=== PATIENT | female | born 1935 | race Caucasian/White ===

== ENCOUNTER 2020-08-11 16:52 | Inpatient (IN) | payer MEDICARE, BC ==
[~2020-08-11] VITALS: Ht 167.6 cm; Wt 81.9 kg
[~2020-08-11 16:52] MED LIST: ASPI-482 PO; ATOR20TA PO; CETI10CA PO; CHOL20002 PO; CYCL10TA2 PO; HYDR-3164 PO; LOSA1TAB25 PO; OMEP40CA45 PO
[2020-08-11] MEDS ORDERED: IV NORMAL SALINE 1000ML BAG 1,000 ML IV SCH (17:30)
[2020-08-11 17:42] LABS: BILIRUBIN,URINE NEGATIVE (NEG); CLARITY,URINE CLEAR; COLOR,URINE YELLOW; NITRITE,URINE NEGATIVE (NEG); PH,URINE 5.5 (<5.0-8.0); PROTEIN,URINE 30 mg/dL (NEG-TRACE); UROBILINOGEN,URINE 0.2 mg/dL (0.2 mg/dL)
[2020-08-11 17:52] LABS: AMORPHOUS SEDIMENT,UR PRESENT /HPF; BACTERIA,URINE MODERATE /HPF (0-FEW); RBC,URINE 0 /HPF (0-2)
[2020-08-11 18:00] LABS: BASO # 0.1 x10^3/uL (0.0-0.2); BASO % 0 % (0-3); EOS % 0 % (0-3); HEMATOCRIT 31.7 % (36.0-47.0); HEMOGLOBIN 9.8 g/dL (12.0-15.5); LYMPH # 0.5 x10^3/uL (1.0-4.8); LYMPH % 4 % (24-48); MEAN CORPUSCULAR HEMOGLOBIN 22 pg (25-35); MEAN CORPUSCULAR HGB CONC 31 g/dL (31-37); MEAN CORPUSCULAR VOLUME 70 fL (79-100); MONO # 0.7 x10^3/uL (0.0-1.1); MONO % 5 % (0-9); NEUT % 91 % (31-73); PLATELET COUNT 425 x10^3/uL (140-400); RED BLOOD COUNT 4.53 x10^6/uL (3.50-5.40); RED CELL DISTRIBUTION WIDTH 18.3 % (11.5-14.5); WHITE BLOOD COUNT 13.2 x10^3/uL (4.0-11.0)
[2020-08-11 18:08] LABS: PROTHROMBIN TIME PATIENT 13.2 SEC (11.7-14.0)
[2020-08-11 18:22] LABS: CALCIUM 9.1 mg/dL (8.5-10.1); CREATININE 0.8 mg/dL (0.6-1.0); GFR 68.5; POTASSIUM 3.8 mmol/L (3.5-5.1)
[2020-08-11 18:34] LABS: % BANDS 1 % (0-9); % LYMPHS 4 % (24-48); % MONOS 3 % (0-10); % SEGS 92 % (35-66); ANISOCYTOSIS SLIGHT; HYPOCHROMIA MOD; MICROCYTOSIS MOD; OVALOCYTES FEW; PLT ESTIMATE ADEQUATE (ADEQUATE)
[2020-08-11 18:35] LABS: ALBUMIN 3.9 g/dL (3.4-5.0); ALBUMIN/GLOBULIN RATIO 1.1 (1.0-1.7); TOTAL BILIRUBIN 1.9 mg/dL (0.2-1.0); TOTAL PROTEIN 7.4 g/dL (6.4-8.2)
--- NOTE | 2020-08-11 18:54 | RAD ---
XR ELBOW COMPLETE_RIGHT 3+ VIEWS, XR SHOULDER_RIGHT 2+ VIEWS, XR HIP (WITH OR WITHOUT PELVIS) 1 VIEW, XR CHEST 1V Clinical History: Reason: FALL, PAIN / Spl. Instructions: / History: One view chest: Technique: AP view of the chest was obtained at 08/11/2020 6:39 PM. Comparison: None. Findings: The cardiomediastinal silhouette is normal. The pulmonary vasculature is normal. The lungs and pleura l margins are clear. There is prior left hip bilateral shoulder arthroplasty. There is a large diaphr agmatic hernia on the right. Impression: No evidence of an acute cardiopulmonary process. End impression Three-view right shoulder: Internally and externally rotated AP views of the shoulder obtained as well as a Y view There is prior right shoulder arthroplasty. The femoral component appears to be well seated within th e glenoid. The visualized osseous structures appear grossly intact. IMPRESSION: Prior right shoulder arthroplasty. No acute findings. 3 view right elbow: AP lateral oblique views There is no fracture line seen. The radial head is not visualized in the right humeral radial relatio nship is normal seen. There is no displacement of fat pad. IMPRESSION: Poor visualization radial head could be positional however a radial head fracture or dislocation is n ot excluded. End impression One view pelvis and two-view hips AP view pelvis and AP and frog leg views hips bilaterally There has been prior repair of the hips with total hip arthroplasty and placement of the acetabular c omponents superior to the previous site of pseudoarthrosis. There has been resection of the proximal right femur. The femoral components appear to be well seated within the femur however the femoral hea d components appear to be somewhat subluxed from the acetabular components. The visualized osseous st ructures appear grossly intact. IMPRESSION: 1. Status post bilateral hip arthroplasty and repair of pseudoarthrosis as well as resection of the p roximal right femur. 2. The femoral head components appear to be somewhat laterally subluxed from the acetabular component s bilaterally. It is unclear if this is chronic. Compared to old x-ray would be helpful. Electronically signed by: Jere Bear III, MD (08/11/2020 6:52 PM) [facility]
--- NOTE | 2020-08-11 19:28 | PHYS DOC ---
Past Medical History Past Medical History: Hypertension (KENTON ORELLANA APRN) Past Surgical History: Appendectomy, Cholecystectomy, Hip Replacement, Knee Replacement, Tonsillectomy Additional Past Surgical Histo: BACK SURGERY (KENTON ORELLANA APRN) Smoking Status: Never Smoker Alcohol Use: None Drug Use: None (KENTON ORELLANA APRN) General Adult EDM: Chief Complaint: MECHANICAL FALL HPI: HPI: Patient is a 85 year old who presents with here by EMS after patient was found by home health laying on the floor in her feces. It is unknown of how long she been there but she was last seen up by family members 24 hours prior. Patient has redness to the right shoulder and arm and states that it does hurt she also has right elbow redness and 2+ swelling. Patient is very stiff in her joints. She is alert and can tell me what year it is and her name. Patient is unable to tell me exactly what happened. Loss of consciousness or is unknown. Patient has a history of dementia, back surgery, appendectomy, cholecystectomy, hip replacement, knee replacement, hypertension. Patient is unable to tell me the quality of her pain or what she rates it. (KENTON ORELLANA DAM WORKER) Review of Systems: Review of Systems: Constitutional: Denies fever or chills. [] Eyes: Denies change in visual acuity. [] HENT: Denies nasal congestion or sore throat. [] Respiratory: Denies cough or shortness of breath. [] Cardiovascular: Denies chest pain or edema. [] GI: Denies abdominal pain, nausea, vomiting, bloody stools or diarrhea. [] : Denies dysuria. [] Musculoskeletal: Denies back pain or joint pain. [] Integument: Denies rash. [] Neurologic: Denies headache, focal weakness or sensory changes. [] Endocrine: Denies polyuria or polydipsia. [] Lymphatic: Denies swollen glands. [] Psychiatric: Denies depression or anxiety. [] (KENTON ORELLANA DAM WORKER) Heart Score: C/O Chest Pain: No Risk Factors: Risk Factors: DM, Current or recent (<one month) smoker, HTN, HLP, family history of CAD, obesity. Risk Scores: Score 0 - 3: 2.5% MACE over next 6 weeks - Discharge Home Score 4 - 6: 20.3% MACE over next 6 weeks - Admit for Clinical Observation Score 7 - 10: 72.7% MACE over next 6 weeks - Early Invasive Strategies (KENTON ORELLANA APRN) Current Medications: Current Medications Medications (Trade) Dose Ordered Sig/Parviz Start Time Stop Time Status Last Admin Dose Admin Sodium Chloride 1,000 ml @ 1,000 mls/hr Q1H 08/11/20 17:30 08/11/20 18:29 DC 08/11/20 18:41 1,000 MLS/HR (KENTON ORELLANA APRN) Allergies: Allergies: Allergies Coded Allergies Type Severity Reaction Last Updated Verified Cephalexin Monohydrate Allergy Unknown 03/21/13 Yes Penicillins Allergy Unknown 03/21/13 Yes morphine Allergy Unknown 03/21/13 Yes vancomycin Allergy Unknown 03/21/13 Yes (KENTON ORELLANA APRN) Physical Exam: PE: Constitutional: Well developed, well nourished, no acute distress, non-toxic appearance. [] HENT: Normocephalic, atraumatic, bilateral external ears normal, oropharynx m oist, no oral exudates, nose normal. [] Eyes: PERRLA, EOMI, conjunctiva normal, no discharge. [] Neck: Normal range of motion, no tenderness, supple, no stridor. [] Cardiovascular:Heart rate regular rhythm, no murmur [] Lungs & Thorax: Bilateral breath sounds clear to auscultation [] Abdomen: Bowel sounds normal, soft, no tenderness, no masses, no pulsatile masses. [] Skin: Warm, dry, no erythema, no rash. [] Back: No tenderness, no CVA tenderness. [] Extremities: No tenderness, no cyanosis, no clubbing, ROM intact, no edema. [] Neurologic: Alert and oriented X 3, normal motor function, normal sensory function, no focal deficits noted. [] Psychologic: Affect normal, judgement normal, mood normal. [] (KENTON ORELLANA APRN) Current Patient Data: Labs: Laboratory Tests Test 08/11/20 17:08 08/11/20 17:40 Urine Collection Type U cath Urine Color Yellow Urine Clarity Clear Urine pH 5.5 (<5.0-8.0) Urine Specific [place] 1.020 (1.000-1.030) Urine Protein 30 mg/dL (NEG-TRACE) Urine Glucose (UA) Negative mg/dL (NEG) Urine Ketones (Stick) Trace mg/dL (NEG) Urine Blood Negative (NEG) Urine Nitrite Negative (NEG) Urine Bilirubin Negative (NEG) Urine Urobilinogen Dipstick 0.2 mg/dL (0.2 mg/dL) Urine Leukocyte Esterase Negative (NEG) Urine RBC 0 /HPF (0-2) Urine WBC 1-4 /HPF (0-4) Urine Squamous Epithelial Cells Few /LPF Urine Amorphous Sediment Present /HPF Urine Bacteria Moderate /HPF (0-FEW) Urine Mucus Slight /LPF White Blood Count 13.2 x10^3/uL (4.0-11.0) H Red Blood Count 4.53 x10^6/uL (3.50-5.40) Hemoglobin 9.8 g/dL (12.0-15.5) L Hematocrit 31.7 % (36.0-47.0) L Mean Corpuscular Volume 70 fL (79-100) L Mean Corpuscular Hemoglobin 22 pg (25-35) L Mean Corpuscular Hemoglobin Concent 31 g/dL (31-37) Red Cell Distribution Width 18.3 % (11.5-14.5) H Platelet Count 425 x10^3/uL (140-400) H Neutrophils (%) (Auto) 91 % (31-73) H Lymphocytes (%) (Auto) 4 % (24-48) L Monocytes (%) (Auto) 5 % (0-9) Eosinophils (%) (Auto) 0 % (0-3) Basophils (%) (Auto) 0 % (0-3) Neutrophils # (Auto) 12.0 x10^3/uL (1.8-7.7) H Lymphocytes # (Auto) 0.5 x10^3/uL (1.0-4.8) L Monocytes # (Auto) 0.7 x10^3/uL (0.0-1.1) Eosinophils # (Auto) 0.0 x10^3/uL (0.0-0.7) Basophils # (Auto) 0.1 x10^3/uL (0.0-0.2) Segmented Neutrophils % 92 % (35-66) H Band Neutrophils % 1 % (0-9) Lymphocytes % 4 % (24-48) L Monocytes % 3 % (0-10) Platelet Estimate Adequate (ADEQUATE) Hypochromasia Mod Anisocytosis Slight Microcytosis Mod Ovalocytes Few Prothrombin Time 13.2 SEC (11.7-14.0) Prothrombin Time INR 1.0 (0.8-1.1) Sodium Level 141 mmol/L (136-145) Potassium Level 3.8 mmol/L (3.5-5.1) Chloride Level 103 mmol/L (98-107) Carbon Dioxide Level 26 mmol/L (21-32) Anion Gap 12 (6-14) Blood Urea Nitrogen 23 mg/dL (7-20) H Creatinine 0.8 mg/dL (0.6-1.0) Estimated GFR (Cockcroft-Gault) 68.5 BUN/Creatinine Ratio 29 (6-20) H Glucose Level 120 mg/dL (70-99) H Lactic Acid Level 1.8 mmol/L (0.4-2.0) Calcium Level 9.1 mg/dL (8.5-10.1) Magnesium Level 2.0 mg/dL (1.8-2.4) Total Bilirubin 1.9 mg/dL (0.2-1.0) H Aspartate Amino Transferase (AST) 51 U/L (15-37) H Alanine Aminotransferase (ALT) 31 U/L (14-59) Alkaline Phosphatase 58 U/L (46-116) Creatine Kinase 1219 U/L (26-192) H Troponin I Quantitative 0.020 ng/mL (0.000-0.055) CB-Elv-W-Type Natriuretic Peptide 2067 pg/mL (0-449) H Total Protein 7.4 g/dL (6.4-8.2) Albumin 3.9 g/dL (3.4-5.0) Albumin/Globulin Ratio 1.1 (1.0-1.7) Lipase 60 U/L (73-393) L Laboratory Tests 08/11/20 17:40 Laboratory Tests 08/11/20 17:40 Vital Signs: Vital Signs Date Time Temp Pulse Resp B/P (MAP) Pulse Ox O2 Delivery O2 Flow Rate FiO2 08/11/20 18:38 84 18 137/62 (87) 98 Room Air 08/11/20 16:52 98.2 98.2 (KENTON ORELLANA APRN) EKG: EK and read by Dr. Alcantara is sinus rhythm and no STEMI [] (KENTON ORELLANA APRN) Radiology/Procedures: Radiology/Procedures: [] Impression: [facility] [address] [place] [address] IMAGING REPORT Signed PATIENT: CHITRA MOON ACCOUNT: [id number] : 1935 LOCATION: ER AGE: 85 SEX: F EXAM STATUS: REG ER ORD. PHYSICIAN: KENTON ORELLANA APRN REASON: AMS PROCEDURE: PORTABLE CHEST 1V XR ELBOW COMPLETE_RIGHT 3+ VIEWS, XR SHOULDER_RIGHT 2+ VIEWS, XR HIP (WITH OR WITHOUT PELVIS) 1 VIEW, XR CHEST 1V Clinical History: Reason: FALL, PAIN / Spl. Instructions: / History: One view chest: Technique: AP view of the chest was obtained at 08/11/2020 6:39 PM. Comparison: None. Findings: The cardiomediastinal silhouette is normal. The pulmonary vasculature is normal. The lungs and pleural margins are clear. There is prior left hip bilateral s houlder arthroplasty. There is a large diaphragmatic hernia on the right. Impression: No evidence of an acute cardiopulmonary process. End impression Three-view right shoulder: Internally and externally rotated AP views of the shoulder obtained as well as a Y view There is prior right shoulder arthroplasty. The femoral component appears to be well seated within the glenoid. The visualized osseous structures appear grossly intact. IMPRESSION: Prior right shoulder arthroplasty. No acute findings. 3 view right elbow: AP lateral oblique views There is no fracture line seen. The radial head is not visualized in the right humeral radial relationship is normal seen. There is no displacement of fat pad. IMPRESSION: Poor visualization radial head could be positional however a radial head fracture or dislocation is not excluded. End impression One view pelvis and two-view hips AP view pelvis and AP and frog leg views hips bilaterally There has been prior repair of the hips with total hip arthroplasty and placement of the acetabular components superior to the previous site of pseudoarthrosis. There has been resection of the proximal right femur. The femoral components appear to be well seated within the femur however the femoral head components appear to be somewhat subluxed from the acetabular components. The visualized osseous structures appear grossly intact. IMPRESSION: 1. Status post bilateral hip arthroplasty and repair of pseudoarthrosis as well as resection of the proximal right femur. 2. The femoral head components appear to be somewhat laterally subluxed from the acetabular components bilaterally. It is unclear if this is chronic. Compared to old x-ray would be helpful. Electronically signed by: Luz Rodriguez III, MD (08/11/2020 6:52 PM) [facility] DICTATED and SIGNED BY: LUZ RODRIGUEZ III, MD DATE: 08/11/20 [id number] [facility] [address] [place] [address] IMAGING REPORT Signed PATIENT: CHITRA MOON ACCOUNT: [id number] : 1935 LOCATION: ER AGE: 85 SEX: F EXAM STATUS: REG ER ORD. PHYSICIAN: KENTON ORELLANA APRN REASON: FALL, PAIN, AMS PROCEDURE: CT THORACIC SPINE WO CONTRAST CT thoracic spine without contrast History: Reason: FALL, PAIN, AMS / Spl. Instructions: / History: Axial helical images of the thoracic spine were obtained without contrast. Axial, coronal and sagittal reconstruction was performed. Findings: The vertebral bodies are aligned. There is no loss of vertebral body stature. Evaluation of the central canal is limited without contrast. There is no evidence of significant central or neuroforaminal stenosis. There is old large diaphragmatic hernia on the right. Impression: No acute findings. End impression CT lumbar spine without contrast History: Back pain Axial helical images of the lumbar spine were obtained without contrast. Axial, coronal and sagittal reconstruction was performed. Findings: There is mild degenerative dextroconvexed scoliosis of the lumbar spine. The vertebral bodies are aligned in the sagittal plane. There is no loss of vertebral body stature. Evaluation of the central canal is limited without contrast. There is loss of intervertebral disc material at multiple levels. Diffuse disc osteophytic ridges and hypertrophy assessment flavum results in multilevel mild central stenosis. There is marked narrowing of multiple neuroforamen below lower legs and nerve roots. There is moderate wall thickening of the rectum not well included in this examination. Impression: 1. Marked chronic discogenic disease lumbar spine. 2. Moderate wall thickening of the rectum. This is not well included in this examination and could be inflammatory or infectious or neoplastic. End impression PQRS Compliance Statement: One or more of the following individualized dose reduction techniques were utilized for this examination: 1. Automated exposure control 2. Adjustment of the mA and/or kV according to patient size 3. Use of iterative reconstruction technique Electronically signed by: Luz Rodriguez III, MD (08/11/2020 7:37 PM) [facility] DICTATED and SIGNED BY: LUZ RODRIGUEZ III, MD DATE: 08/11/20 [id number] [facility] [address] [place] [address] IMAGING REPORT Signed PATIENT: CHITRA MOON ACCOUNT: [id number] : 1935 LOCATION: ER AGE: 85 SEX: F EXAM STATUS: REG ER ORD. PHYSICIAN: KENTON ORELLANA APRN REASON: AMS PROCEDURE: CT HEAD AND CERVICAL SPINE WO Exam: CT head and cervical spine without contrast INDICATION: Altered mental status TECHNIQUE: Sequential axial images through the head and cervical spine were obtained without the administration of IV contrast. Exposure: One or more of the following in the visualized dose reduction techniques were utilized for this examination: 1. Automated exposure control 2. Adjustment of the MA and/or KV according to patient size 3. Use of iterative of reconstructive technique Comparisons: None FINDINGS: Head: No focal parenchymal lesion or hemorrhage is identified. There is no midline shift or sulcal effacement. No acute vascular territory infarction is identified. Gilbert-white distinction is preserved. The ventricular system is within normal limits without compression hydrocephalus. The basal cisterns are well maintained. The visualized portions of the paranasal sinuses and mastoid air cells are well- pneumatized. No acute fractures. Cervical spine: Straightening of the cervical spine which may positional. Vertebral body heights are well-maintained. Fracture to the cervical spine is not identified. Multilevel spondylotic change in cervical spine with degenerative disc disease greatest at C4-C5, C5-6 and C6-C7. Mild bilateral facet arthropathy is also noted. Visualized paraspinal soft tissues are unremarkable. IMPRESSION: 1. No acute intracranial abnormality. 2. Negative CT C-spine for acute traumatic injury. Electronically signed by: Ayo Starr MD (08/11/2020 7:26 PM) [facility] DICTATED and SIGNED BY: AYO STARR MD DATE: 08/11/20 [id number] (KENTON ORELLANA APRN) Course & Med Decision Making: Course & Med Decision Making Pertinent Labs and Imaging studies reviewed. (See chart for details) See HPI. Abdomen is soft and nontender. Upper and lower lobes are clear and lower lobes are diminished. No pain with pelvic rock. There is no pain with palpation over any joints. There is no focal bony spinal tenderness or deformity felt or seen. Bilateral lower legs are 2+ swollen but her feet bilaterally do not appear to be swollen. Vital signs are within normal limits. She is afebrile. There is no trauma seen or felt to her skull or her face. Unable to assess for stroke due to dementia. Unable to assess for joint laxities or weakness due to patient's rigidity and she is unable to follow all c ommands. Skin pink warm and dry. She is wearing a brief this time. [] (KENTON ORELLANA APRN) Dragon Disclaimer: Dragon Disclaimer: This electronic medical record was generated, in whole or in part, using a voice recognition dictation system. (KENTON ORELLANA APRN) Departure Departure Impression: Primary Impression: AMS (altered mental status) Qualified Codes: R41.82 - Altered mental status, unspecified Disposition: ADMITTED INPATIENT Admitting Physician: MJ (KENTON ORELLNAA APRN) Condition: STABLE Referrals: MARCELO FLANAGAN MD (PCP) Attending Signature Attending Signature I have participated in the care of this patient and I have reviewed and agree with all pertinent clinical information above including history, exam, and recommendations. (LURDES ALCANTARA DO) KENTON ORELLANA APRN August 11, 2020 19:28 LURDES ALCANTARA DO August 13, 2020 17:48
--- NOTE | 2020-08-11 19:40 | RAD ---
CT thoracic spine without contrast History: Reason: FALL, PAIN, AMS / Spl. Instructions: / History: Axial helical images of the thoracic spine were obtained without contrast. Axial, coronal and sagitta l reconstruction was performed. Findings: The vertebral bodies are aligned. There is no loss of vertebral body stature. Evaluation of the central canal is limited without contrast. There is no evidence of significant cent ral or neuroforaminal stenosis. There is old large diaphragmatic hernia on the right. Impression: No acute findings. End impression CT lumbar spine without contrast History: Back pain Axial helical images of the lumbar spine were obtained without contrast. Axial, coronal and sagittal reconstruction was performed. Findings: There is mild degenerative dextroconvexed scoliosis of the lumbar spine. The vertebral bodies are ali gned in the sagittal plane. There is no loss of vertebral body stature. Evaluation of the central canal is limited without contrast. There is loss of intervertebral disc mat erial at multiple levels. Diffuse disc osteophytic ridges and hypertrophy assessment flavum results i n multilevel mild central stenosis. There is marked narrowing of multiple neuroforamen below lower legs and nerve roots. There is moderat e wall thickening of the rectum not well included in this examination. Impression: 1. Marked chronic discogenic disease lumbar spine. 2. Moderate wall thickening of the rectum. This is not well included in this examination and could be inflammatory or infectious or neoplastic. End impression PQRS Compliance Statement: One or more of the following individualized dose reduction techniques were utilized for this examinat ion: 1. Automated exposure control 2. Adjustment of the mA and/or kV according to patient size 3. Use of iterative reconstruction technique Electronically signed by: Jere Bear III, MD (08/11/2020 7:37 PM) [facility]
--- NOTE | 2020-08-11 19:49 | EKG ---
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
--- NOTE | 2020-08-11 19:59 | PDOC1 ---
History and Physical Date of Admission Date of Admission DATE: 08/11/20 TIME: 19:50 Source Source: Chart review History of Present Illness History of Present Illness Ms. Avitia, is a 85 year old admit from ER after being found down at her place. She may have been down up to 23 hours from when she was last seen. She has family check on her almost daily and I would guess gets home health. she complains of right arm pain and there is some redness of her upper arm. She is confused but conversant. Past Medical History Past Medical History Patient has a history of dementia, Cardiovascular: CHF, HTN CENTRAL NERVOUS SYSTEM: Dementia GI: No pertinent hx Infectious disease: No pertinent hx Past Surgical History Past Surgical History back surgery, appendectomy, cholecystectomy, hip replacement, knee replacement, Family History Family History: No Significant Social History Smoke: No ALCOHOL: none Current Problem List Problem List Problems Medical Problems: (1) AMS (altered mental status) Status: Acute Current Medications Current Medications Current Medications Sodium Chloride 1,000 ml @ 1,000 mls/hr Q1H IV Last administered on 08/11/20at 1 8:41; Start 08/11/20 at 17:30; Stop 08/11/20 at 18:29; Status DC Sodium Chloride 1,000 ml @ 100 mls/hr Q10H IV ; Start 08/11/20 at 20:00; Stop 08/12/20 at 19:59; Status UNV Active Scripts Active [place] 5-325 Tablet (Hydrocodone Bit/Acetaminophen) 1 Each Tablet 1 Each PO Q6HRS PRN Cyclobenzaprine Hcl 10 Mg Tablet 10 Mg PO TID PRN PRN Reported Vitamin D (Cholecalciferol (Vitamin D3)) 2,000 Unit Tablet 2,000 Unit PO DAILY Omeprazole 40 Mg Capsule. 40 Mg PO DAILY Zyrtec (Cetirizine Hcl) 10 Mg Capsule 10 Mg PO DAILY Aspir 81 (Aspirin) 81 Mg Tablet.dr 81 Mg PO DAILY Losartan-Hctz 100-12.5 Mg Tab (Losartan/Hydrochlorothiazide) 1 Each Tablet 1 Each PO DAILY Lipitor (Atorvastatin Calcium) 20 Mg Tablet 20 Mg PO DAILY Allergies Allergies: Coded Allergies: Cephalexin Monohydrate (Verified Allergy, Unknown, 03/21/13) Penicillins (Verified Allergy, Unknown, 03/21/13) morphine (Verified Allergy, Unknown, 03/21/13) vancomycin (Verified Allergy, Unknown, 03/21/13) ROS Review of System unable to complete, dementia Physical Exam General: Cooperative, No acute distress, Other (not oriented, ) HEENT: Atraumatic, PERRLA Lungs: Normal air movement Heart: no gallops, no murmurs Extremities: Other (no pedal edema, upper leg area seems swollen ) Skin: No significant lesion Neuro: Normal speech, Normal tone, Cranial nerves 3-12 NL Psych/Mental Status: Mood NL Vitals Vitals Vital Signs Date Time Temp Pulse Resp B/P (MAP) Pulse Ox O2 Delivery O2 Flow Rate FiO2 08/11/20 18:38 84 18 137/62 (87) 98 Room Air 08/11/20 16:52 98.2 98.2 Labs Labs Laboratory Tests Test 08/11/20 17:08 08/11/20 17:40 Urine Collection Type U cath Urine Color Yellow Urine Clarity Clear Urine pH 5.5 (<5.0-8.0) Urine Specific [place] 1.020 (1.000-1.030) Urine Protein 30 mg/dL (NEG-TRACE) Urine Glucose (UA) Negative mg/dL (NEG) Urine Ketones (Stick) Trace mg/dL (NEG) Urine Blood Negative (NEG) Urine Nitrite Negative (NEG) Urine Bilirubin Negative (NEG) Urine Urobilinogen Dipstick 0.2 mg/dL (0.2 mg/dL) Urine Leukocyte Esterase Negative (NEG) Urine RBC 0 /HPF (0-2) Urine WBC 1-4 /HPF (0-4) Urine Squamous Epithelial Cells Few /LPF Urine Amorphous Sediment Present /HPF Urine Bacteria Moderate /HPF (0-FEW) Urine Mucus Slight /LPF White Blood Count 13.2 x10^3/uL (4.0-11.0) Red Blood Count 4.53 x10^6/uL (3.50-5.40) Hemoglobin 9.8 g/dL (12.0-15.5) Hematocrit 31.7 % (36.0-47.0) Mean Corpuscular Volume 70 fL (79-100) Mean Corpuscular Hemoglobin 22 pg (25-35) Mean Corpuscular Hemoglobin Concent 31 g/dL (31-37) Red Cell Distribution Width 18.3 % (11.5-14.5) Platelet Count 425 x10^3/uL (140-400) Neutrophils (%) (Auto) 91 % (31-73) Lymphocytes (%) (Auto) 4 % (24-48) Monocytes (%) (Auto) 5 % (0-9) Eosinophils (%) (Auto) 0 % (0-3) Basophils (%) (Auto) 0 % (0-3) Neutrophils # (Auto) 12.0 x10^3/uL (1.8-7.7) Lymphocytes # (Auto) 0.5 x10^3/uL (1.0-4.8) Monocytes # (Auto) 0.7 x10^3/uL (0.0-1.1) Eosinophils # (Auto) 0.0 x10^3/uL (0.0-0.7) Basophils # (Auto) 0.1 x10^3/uL (0.0-0.2) Segmented Neutrophils % 92 % (35-66) Band Neutrophils % 1 % (0-9) Lymphocytes % 4 % (24-48) Monocytes % 3 % (0-10) Platelet Estimate Adequate (ADEQUATE) Hypochromasia Mod Anisocytosis Slight Microcytosis Mod Ovalocytes Few Prothrombin Time 13.2 SEC (11.7-14.0) Prothromb Time International Ratio 1.0 (0.8-1.1) Sodium Level 141 mmol/L (136-145) Potassium Level 3.8 mmol/L (3.5-5.1) Chloride Level 103 mmol/L (98-107) Carbon Dioxide Level 26 mmol/L (21-32) Anion Gap 12 (6-14) Blood Urea Nitrogen 23 mg/dL (7-20) Creatinine 0.8 mg/dL (0.6-1.0) Estimated GFR (Cockcroft-Gault) 68.5 BUN/Creatinine Ratio 29 (6-20) Glucose Level 120 mg/dL (70-99) Lactic Acid Level 1.8 mmol/L (0.4-2.0) Calcium Level 9.1 mg/dL (8.5-10.1) Magnesium Level 2.0 mg/dL (1.8-2.4) Total Bilirubin 1.9 mg/dL (0.2-1.0) Aspartate Amino Transf (AST/SGOT) 51 U/L (15-37) Alanine Aminotransferase (ALT/SGPT) 31 U/L (14-59) Alkaline Phosphatase 58 U/L (46-116) Creatine Kinase 1219 U/L (26-192) Troponin I Quantitative 0.020 ng/mL (0.000-0.055) DC-Wxn-R-Type Natriuretic Peptide 2067 pg/mL (0-449) Total Protein 7.4 g/dL (6.4-8.2) Albumin 3.9 g/dL (3.4-5.0) Albumin/Globulin Ratio 1.1 (1.0-1.7) Lipase 60 U/L (73-393) Laboratory Tests Test 08/11/20 17:08 08/11/20 17:40 Urine Collection Type U cath Urine Color Yellow Urine Clarity Clear Urine pH 5.5 (<5.0-8.0) Urine Specific [place] 1.020 (1.000-1.030) Urine Protein 30 mg/dL (NEG-TRACE) Urine Glucose (UA) Negative mg/dL (NEG) Urine Ketones (Stick) Trace mg/dL (NEG) Urine Blood Negative (NEG) Urine Nitrite Negative (NEG) Urine Bilirubin Negative (NEG) Urine Urobilinogen Dipstick 0.2 mg/dL (0.2 mg/dL) Urine Leukocyte Esterase Negative (NEG) Urine RBC 0 /HPF (0-2) Urine WBC 1-4 /HPF (0-4) Urine Squamous Epithelial Cells Few /LPF Urine Amorphous Sediment Present /HPF Urine Bacteria Moderate /HPF (0-FEW) Urine Mucus Slight /LPF White Blood Count 13.2 x10^3/uL (4.0-11.0) Red Blood Count 4.53 x10^6/uL (3.50-5.40) Hemoglobin 9.8 g/dL (12.0-15.5) Hematocrit 31.7 % (36.0-47.0) Mean Corpuscular Volume 70 fL (79-100) Mean Corpuscular Hemoglobin 22 pg (25-35) Mean Corpuscular Hemoglobin Concent 31 g/dL (31-37) Red Cell Distribution Width 18.3 % (11.5-14.5) Platelet Count 425 x10^3/uL (140-400) Neutrophils (%) (Auto) 91 % (31-73) Lymphocytes (%) (Auto) 4 % (24-48) Monocytes (%) (Auto) 5 % (0-9) Eosinophils (%) (Auto) 0 % (0-3) Basophils (%) (Auto) 0 % (0-3) Neutrophils # (Auto) 12.0 x10^3/uL (1.8-7.7) Lymphocytes # (Auto) 0.5 x10^3/uL (1.0-4.8) Monocytes # (Auto) 0.7 x10^3/uL (0.0-1.1) Eosinophils # (Auto) 0.0 x10^3/uL (0.0-0.7) Basophils # (Auto) 0.1 x10^3/uL (0.0-0.2) Segmented Neutrophils % 92 % (35-66) Band Neutrophils % 1 % (0-9) Lymphocytes % 4 % (24-48) Monocytes % 3 % (0-10) Platelet Estimate Adequate (ADEQUATE) Hypochromasia Mod Anisocytosis Slight Microcytosis Mod Ovalocytes Few Prothrombin Time 13.2 SEC (11.7-14.0) Prothromb Time International Ratio 1.0 (0.8-1.1) Sodium Level 141 mmol/L (136-145) Potassium Level 3.8 mmol/L (3.5-5.1) Chloride Level 103 mmol/L (98-107) Carbon Dioxide Level 26 mmol/L (21-32) Anion Gap 12 (6-14) Blood Urea Nitrogen 23 mg/dL (7-20) Creatinine 0.8 mg/dL (0.6-1.0) Estimated GFR (Cockcroft-Gault) 68.5 BUN/Creatinine Ratio 29 (6-20) Glucose Level 120 mg/dL (70-99) Lactic Acid Level 1.8 mmol/L (0.4-2.0) Calcium Level 9.1 mg/dL (8.5-10.1) Magnesium Level 2.0 mg/dL (1.8-2.4) Total Bilirubin 1.9 mg/dL (0.2-1.0) Aspartate Amino Transf (AST/SGOT) 51 U/L (15-37) Alanine Aminotransferase (ALT/SGPT) 31 U/L (14-59) Alkaline Phosphatase 58 U/L (46-116) Creatine Kinase 1219 U/L (26-192) Troponin I Quantitative 0.020 ng/mL (0.000-0.055) OO-Bwe-Q-Type Natriuretic Peptide 2067 pg/mL (0-449) Total Protein 7.4 g/dL (6.4-8.2) Albumin 3.9 g/dL (3.4-5.0) Albumin/Globulin Ratio 1.1 (1.0-1.7) Lipase 60 U/L (73-393) VTE Prophylaxis Ordered VTE Prophylaxis Devices: No VTE Pharmacological Prophylaxi: Yes Assessment/Plan Assessment/Plan fall, found down rhabdomyolysis right arm injury, contusion or radial head fracture. dementia weakness, debility htn, chronic diastolic CHF, careful with fluids, microcytic anemia, check iron Justifications for Admission Other Justification HAYDER RANDOLPH MD August 11, 2020 19:59
[2020-08-11] MEDS: ATORVASTATIN CALCIUM 20 MG TABLET PO SCH (21:00)
[2020-08-11] MEDS: IV NORMAL SALINE 1000ML BAG 1,000 ML IV SCH (23:04)
[2020-08-11 23:30] VITALS: BP 176/55
[2020-08-11 23:45] VITALS: BP 174/73
[2020-08-11 23:59] VITALS: BP 152/56
[2020-08-12] VITALS (8 sets, daily range): BP systolic 98–165; BP diastolic 35–63
--- NOTE | 2020-08-12 00:33 | NUR ---
admit from home though ER- Patient lives alone. Her family had not heard form her in 24 hours. Family member checked on her and found her down unresponsive and in her own feces. They called EMS. Upon arrival to ER. patient is a&o x2. Very poor historian. unable to complete admission patient denies pain. Noted patient has red swollen elbow and small bruise on right hip.
[2020-08-12 05:12] LABS: BASO % 1 % (0-3); EOS # 0.1 x10^3/uL (0.0-0.7); EOS % 1 % (0-3); HEMOGLOBIN 8.9 g/dL (12.0-15.5); LYMPH # 0.9 x10^3/uL (1.0-4.8); LYMPH % 10 % (24-48); MEAN CORPUSCULAR HEMOGLOBIN 21 pg (25-35); MEAN CORPUSCULAR HGB CONC 31 g/dL (31-37); MEAN CORPUSCULAR VOLUME 70 fL (79-100); MONO % 10 % (0-9); NEUT # 7.9 x10^3/uL (1.8-7.7); NEUT % 79 % (31-73); PLATELET COUNT 378 x10^3/uL (140-400); RED BLOOD COUNT 4.13 x10^6/uL (3.50-5.40); RED CELL DISTRIBUTION WIDTH 18.1 % (11.5-14.5); WHITE BLOOD COUNT 9.9 x10^3/uL (4.0-11.0)
[2020-08-12 05:44] LABS: ALBUMIN 3.1 g/dL (3.4-5.0); CALCIUM 8.5 mg/dL (8.5-10.1); CREATININE 0.7 mg/dL (0.6-1.0); GFR 79.9; POTASSIUM 3.5 mmol/L (3.5-5.1); TOTAL BILIRUBIN 1.6 mg/dL (0.2-1.0); TOTAL PROTEIN 6.1 g/dL (6.4-8.2)
[2020-08-12] MEDS ORDERED: NON FORMULARY ITEM (Losartan/Hydrochlorothiazide (Losartan-Hctz 100-12.5 Mg Tab) 1 EACH) PO SCH (09:00)
[2020-08-12] MEDS: CYCLOBENZAPRINE 10 MG TABLET. PO PRN (09:16)
[2020-08-12] MEDS: hydroCHLOROthiazide 12.5 MG CAPSULE PO SCH (09:16)
[2020-08-12] MEDS: ASPIRIN ENTERIC COATED 81 MG TABLET.DR. PO SCH (09:17)
[2020-08-12] MEDS: PANTOPRAZOLE 40 MG TABLET.DR. PO SCH (09:17)
[2020-08-12] MEDS: IV NORMAL SALINE 1000ML BAG 1,000 ML IV SCH ×2 (09:17→16:00)
[2020-08-12] MEDS: LOSARTAN POTASSIUM 50 MG TABLET. PO SCH (09:17)
--- NOTE | 2020-08-12 14:29 | PDOC ---
[employer] PROGRESS NOTE Date of Service DOS: DATE: 08/12/20 TIME: 14:28 Chief Complaint Chief Complaint fall, found down rhabdomyolysis right arm injury, contusion or radial head fracture. dementia weakness, debility htn, chronic diastolic CHF, careful with fluids, microcytic anemia, check iron History of Present Illness History of Present Illness cont IV fluid Med mon overflow start PT and OT Vitals/I&O Vitals/I&O: Vital Signs Date Time Temp Pulse Resp B/P (MAP) Pulse Ox O2 Delivery O2 Flow Rate FiO2 08/12/20 11:00 97.8 78 16 109/35 (59) 100 Room Air 97.8 I & O 08/11/20 08/11/20 08/12/20 15:00 23:00 07:00 Intake Total 0 ml Balance 0 ml Physical Exam General: Cooperative, No acute distress, Other (not oriented, ) Heart: Regular rate Lungs: Wheezing Extremities: No cyanosis, Other (no pedal edema, upper leg area seems swollen ) Skin: No breakdown, No significant lesion Labs Labs: Laboratory Tests Test 08/11/20 17:08 08/11/20 17:40 08/11/20 21:35 08/12/20 05:00 Urine Collection Type U cath Urine Color Yellow Urine Clarity Clear Urine pH 5.5 (<5.0-8.0) Urine Specific [place] 1.020 (1.000-1.030) Urine Protein 30 mg/dL (NEG-TRACE) Urine Glucose (UA) Negative mg/dL (NEG) Urine Ketones (Stick) Trace mg/dL (NEG) Urine Blood Negative (NEG) Urine Nitrite Negative (NEG) Urine Bilirubin Negative (NEG) Urine Urobilinogen Dipstick 0.2 mg/dL (0.2 mg/dL) Urine Leukocyte Esterase Negative (NEG) Urine RBC 0 /HPF (0-2) Urine WBC 1-4 /HPF (0-4) Urine Squamous Epithelial Cells Few /LPF Urine Amorphous Sediment Present /HPF Urine Bacteria Moderate /HPF (0-FEW) Urine Mucus Slight /LPF White Blood Count 13.2 x10^3/uL (4.0-11.0) 9.9 x10^3/uL (4.0-11.0) Red Blood Count 4.53 x10^6/uL (3.50-5.40) 4.13 x10^6/uL (3.50-5.40) Hemoglobin 9.8 g/dL (12.0-15.5) 8.9 g/dL (12.0-15.5) Hematocrit 31.7 % (36.0-47.0) 29.0 % (36.0-47.0) Mean Corpuscular Volume 70 fL (79-100) 70 fL (79-100) Mean Corpuscular Hemoglobin 22 pg (25-35) 21 pg (25-35) Mean Corpuscular Hemoglobin Concent 31 g/dL (31-37) 31 g/dL (31-37) Red Cell Distribution Width 18.3 % (11.5-14.5) 18.1 % (11.5-14.5) Platelet Count 425 x10^3/uL (140-400) 378 x10^3/uL (140-400) Neutrophils (%) (Auto) 91 % (31-73) 79 % (31-73) Lymphocytes (%) (Auto) 4 % (24-48) 10 % (24-48) Monocytes (%) (Auto) 5 % (0-9) 10 % (0-9) Eosinophils (%) (Auto) 0 % (0-3) 1 % (0-3) Basophils (%) (Auto) 0 % (0-3) 1 % (0-3) Neutrophils # (Auto) 12.0 x10^3/uL (1.8-7.7) 7.9 x10^3/uL (1.8-7.7) Lymphocytes # (Auto) 0.5 x10^3/uL (1.0-4.8) 0.9 x10^3/uL (1.0-4.8) Monocytes # (Auto) 0.7 x10^3/uL (0.0-1.1) 1.0 x10^3/uL (0.0-1.1) Eosinophils # (Auto) 0.0 x10^3/uL (0.0-0.7) 0.1 x10^3/uL (0.0-0.7) Basophils # (Auto) 0.1 x10^3/uL (0.0-0.2) 0.0 x10^3/uL (0.0-0.2) Segmented Neutrophils % 92 % (35-66) Band Neutrophils % 1 % (0-9) Lymphocytes % 4 % (24-48) Monocytes % 3 % (0-10) Platelet Estimate Adequate (ADEQUATE) Hypochromasia Mod Anisocytosis Slight Microcytosis Mod Ovalocytes Few Prothrombin Time 13.2 SEC (11.7-14.0) Prothromb Time International Ratio 1.0 (0.8-1.1) Sodium Level 141 mmol/L (136-145) 142 mmol/L (136-145) Potassium Level 3.8 mmol/L (3.5-5.1) 3.5 mmol/L (3.5-5.1) Chloride Level 103 mmol/L (98-107) 108 mmol/L (98-107) Carbon Dioxide Level 26 mmol/L (21-32) 25 mmol/L (21-32) Anion Gap 12 (6-14) 9 (6-14) Blood Urea Nitrogen 23 mg/dL (7-20) 20 mg/dL (7-20) Creatinine 0.8 mg/dL (0.6-1.0) 0.7 mg/dL (0.6-1.0) Estimated GFR (Cockcroft-Gault) 68.5 79.9 BUN/Creatinine Ratio 29 (6-20) 29 (6-20) Glucose Level 120 mg/dL (70-99) 97 mg/dL (70-99) Lactic Acid Level 1.8 mmol/L (0.4-2.0) Calcium Level 9.1 mg/dL (8.5-10.1) 8.5 mg/dL (8.5-10.1) Magnesium Level 2.0 mg/dL (1.8-2.4) Total Bilirubin 1.9 mg/dL (0.2-1.0) 1.6 mg/dL (0.2-1.0) Aspartate Amino Transf (AST/SGOT) 51 U/L (15-37) 50 U/L (15-37) Alanine Aminotransferase (ALT/SGPT) 31 U/L (14-59) 30 U/L (14-59) Alkaline Phosphatase 58 U/L (46-116) 48 U/L (46-116) Creatine Kinase 1219 U/L (26-192) 967 U/L (26-192) Troponin I Quantitative 0.020 ng/mL (0.000-0.055) 0.029 ng/mL (0.000-0.055) 0.048 ng/mL (0.000-0.055) JQ-Ajo-I-Type Natriuretic Peptide 2067 pg/mL (0-449) Total Protein 7.4 g/dL (6.4-8.2) 6.1 g/dL (6.4-8.2) Albumin 3.9 g/dL (3.4-5.0) 3.1 g/dL (3.4-5.0) Albumin/Globulin Ratio 1.1 (1.0-1.7) 1.0 (1.0-1.7) Lipase 60 U/L (73-393) Iron Level 15 ug/dL (50-170) Total Iron Binding Capacity 332 ug/dL (250-450) Iron Saturation 5 % (15-34) Test 08/12/20 11:33 Glucose (Fingerstick) 148 mg/dL (70-99) Assessment and Plan Assessmemt and Plan Problems Medical Problems: (1) AMS (altered mental status) Status: Acute Comment Review of Relevant I have reviewed the following items raz (where applicable) has been applied. Medications: Current Medications Medications (Trade) Dose Ordered Sig/Parviz Route PRN Reason Start Time Stop Time Status Last Admin Dose Admin Sodium Chloride 1,000 ml @ 1,000 mls/hr Q1H IV 08/11/20 17:30 08/11/20 18:29 DC 08/11/20 18:41 Sodium Chloride 1,000 ml @ 100 mls/hr Q10H IV 08/11/20 20:00 08/12/20 19:59 08/12/20 09:17 Aspirin (Ecotrin) 81 mg DAILY PO 08/12/20 09:00 08/12/20 09:17 Cyclobenzaprine HCl (Flexeril) 10 mg TID PRN PRN PO MUSCLE SPASMS 08/11/20 20:00 08/12/20 09:16 Pantoprazole Sodium (Protonix) 40 mg DAILYAC PO 08/12/20 07:30 08/12/20 09:17 Losartan Potassium (Cozaar) 100 mg DAILY PO 08/12/20 09:00 08/12/20 09:17 Hydrochlorothiazide (Microzide) 12.5 mg DAILY PO 08/12/20 09:00 08/12/20 09:16 Justifications for Admission Other Justification HAYDER RANDOLPH MD August 12, 2020 14:29
[2020-08-12] MEDS: ATORVASTATIN CALCIUM 20 MG TABLET PO SCH (21:42)
--- NOTE | 2020-08-12 22:38 | CONS ---
DATE OF CONSULTATION: 08/12/2020 REQUESTING PHYSICIAN: Dr. Oconnor. REASON FOR CONSULTATION: Right elbow injury. HISTORY OF PRESENT ILLNESS: The patient is an 85-year-old female who was found down on the floor after a fall and currently a bit confused, is usually checked on daily by her family and could have been down for an extended period of time, had a complaint of right arm pain on admission. PAST MEDICAL HISTORY: Significant for dementia, congestive heart failure, hypertension. PAST SURGICAL HISTORY: Back surgery, appendectomy, cholecystectomy, hip and knee replacements. FAMILY HISTORY: She has no significant family history. SOCIAL HISTORY: Denies smoking, alcohol or drug use, independently ambulatory prior to this. REVIEW OF SYSTEMS: Really not possible due to her dementia; however, she does follow some commands. ALLERGIES: INCLUDE KEFLEX, PENICILLIN, MORPHINE, VANCOMYCIN. MEDICATIONS: Medication list is reviewed. PHYSICAL EXAMINATION: NEUROLOGIC: She does respond some to commands and is a bit conversational, but confused and a bit inappropriate with her responses. EXTREMITIES: On examination of both elbows, she does move both independently with really no indication at all of discomfort. There is no instability on ligamentous examination. She has full range of motion in flexion, extension, pronation and supination. No joint effusion noted. She does have perhaps a tiny bit of superficial swelling over the right elbow compared to the left. Normal motion, alignment, stability, bilateral shoulders and wrists and her grasp strength. She can grasp and let go appropriately and there is no tenderness over hip, knee or ankle with motion. Leg lengths are equal as well. RADIOLOGIC DATA: On x-rays, her right elbow shows a little bit of calcification lateral to the radial head area, but no evidence of any compromise at the joint line or radial head or neck fracture visible. ASSESSMENT: Right elbow contusion. TREATMENT PLAN: She really has no distress with moving her elbows or any of the other joints in her upper or lower extremities. From my standpoint, she can get up and mobilize with physical therapy as symptomatically tolerated and of course medical treatment ongoing for potential rhabdomyolysis with her fall and being down for an unknown, but potentially extended period of time. EVIN/DANIELLE MAYERS: EVIN/lidya TID: [id number]
[2020-08-13] VITALS (8 sets, daily range): BP systolic 119–177; BP diastolic 33–80
--- NOTE | 2020-08-13 04:24 | NUR ---
No IV access, Patient pulled out both IV's. Multiple attempts to start new IV-unsuccessfully. Will notify Physician. Will continue to monitor.
[2020-08-13] MEDS: ASPIRIN ENTERIC COATED 81 MG TABLET.DR. PO SCH (09:06)
[2020-08-13] MEDS: hydroCHLOROthiazide 12.5 MG CAPSULE PO SCH (09:06)
[2020-08-13] MEDS: PANTOPRAZOLE 40 MG TABLET.DR. PO SCH (09:07)
[2020-08-13] MEDS: LOSARTAN POTASSIUM 50 MG TABLET. PO SCH (09:07)
--- NOTE | 2020-08-13 11:10 | PDOC ---
[employer] PROGRESS NOTE Date of Service DOS: DATE: 08/13/20 TIME: 11:09 Chief Complaint Chief Complaint fall, found down rhabdomyolysis right arm injury, contusion or radial head fracture. dementia weakness, debility htn, chronic diastolic CHF, careful with fluids, microcytic anemia, check iron History of Present Illness History of Present Illness 08/13/2020 No acute events overnight. Patient is tolerating p.o. and is encouraged for p.o. free water intake. CK level is at 967 today. Continues to have adequate urine output. Patient's chart, labs, images were reviewed and discussed with RN cont IV fluid Med mon overflow start PT and OT Vitals/I&O Vitals/I&O: Vital Signs Date Time Temp Pulse Resp B/P (MAP) Pulse Ox O2 Delivery O2 Flow Rate FiO2 08/13/20 09:07 73 163/51 08/13/20 08:00 Room Air 08/13/20 07:00 98.5 13 98 98.5 08/13/20 03:00 2.0 I & O 08/12/20 08/12/20 08/13/20 15:00 23:00 07:00 Intake Total 300 ml 1064 ml 100 ml Output Total 0 ml 1 ml 200 ml Balance 300 ml 1063 ml -100 ml Physical Exam General: Cooperative, No acute distress, Other (not oriented, ) Heart: Regular rate Lungs: Wheezing Extremities: No cyanosis, Other (no pedal edema, upper leg area seems swollen ) Skin: No breakdown, No significant lesion Labs Labs: Laboratory Tests Test 08/12/20 11:33 Glucose (Fingerstick) 148 mg/dL (70-99) Assessment and Plan Assessmemt and Plan Problems Medical Problems: (1) AMS (altered mental status) Status: Acute Comment Review of Relevant I have reviewed the following items raz (where applicable) has been applied. Justifications for Admission Other Justification SHAYNA GARCIA MD August 13, 2020 11:10
[2020-08-13] MEDS: NITROFURANTOIN MONOHYD/M-CRYST 100 MG CAPSULE. PO SCH ×3 (12:52→21:49)
--- NOTE | 2020-08-13 14:04 | NUR ---
SS following for discharge planning. SS reviewed pt chart and discussed with pt RN. Pt is from home alone and is currently on room air. PT/OT ordered. SS met with pt and pt's DPOA, Pat, , in room to discuss discharge planning. Pt's DPOA reported that pt is a DNR at home and requested CODE status be changed to DNR. RN notified. Pt's DPOA reported that pt will need custodial unit at discharge and requested referral be phoned and faxed to [facility], ; fax [phone]. SS currently awaiting PT/OT evaluations at this time. COVID19 test requested for placement. SS will continue to follow for discharge planning.
[2020-08-13] MEDS: HYDROcodone/APAP 5/325MG 1 TAB TABLET PO PRN (14:41)
[2020-08-13] MEDS: ATORVASTATIN CALCIUM 20 MG TABLET PO SCH ×2 (21:46→21:49)
[2020-08-13] MEDS: LACTOBACILLUS RHAMNOSUS GG 1 CAPSULE. PO SCH ×2 (21:46→21:49)
[2020-08-14] VITALS (10 sets, daily range): BP systolic 93–183; BP diastolic 42–77
[2020-08-14] MEDS: hydroCHLOROthiazide 12.5 MG CAPSULE PO SCH (09:06)
[2020-08-14] MEDS: NITROFURANTOIN MONOHYD/M-CRYST 100 MG CAPSULE. PO SCH (09:07)
[2020-08-14] MEDS: PANTOPRAZOLE 40 MG TABLET.DR. PO SCH (09:07)
[2020-08-14] MEDS: LOSARTAN POTASSIUM 50 MG TABLET. PO SCH (09:07)
[2020-08-14] MEDS: HYDROcodone/APAP 5/325MG 1 TAB TABLET PO PRN (09:08)
[2020-08-14] MEDS: LACTOBACILLUS RHAMNOSUS GG 1 CAPSULE. PO SCH (09:08)
[2020-08-14] MEDS: ASPIRIN ENTERIC COATED 81 MG TABLET.DR. PO SCH (09:09)
[2020-08-14] MEDS: CYCLOBENZAPRINE 10 MG TABLET. PO PRN (11:13)
[2020-08-14] MEDS ORDERED: OXYB10TA26 PO (11:43)
[2020-08-14] MEDS ORDERED: LIDO700A21 TP (11:43)
[2020-08-14] MEDS ORDERED: CARV3.1210 PO (11:43)
[2020-08-14] MEDS ORDERED: AMLO-186 PO (11:43)
[2020-08-14] MEDS ORDERED: HYDR12.58 PO (11:43)
[2020-08-14] MEDS ORDERED: MELA5TAB20 PO (11:43)
[2020-08-14] MEDS: CARVEDILOL 3.125 MG TABLET. PO SCH ×2 (12:00→16:37)
[2020-08-14] MEDS ORDERED: ATOR20TA58 PO (12:10)
--- NOTE | 2020-08-14 12:12 | SNU/HH DC ---
DISCHARGE ORDERS DISCHARGE INFORMATION: DISCHARGE DATE: August 14, 2020 FINAL DIAGNOSIS Problems Medical Problems: (1) AMS (altered mental status) Status: Acute CONDITION ON DISCHARGE: Stable CODE STATUS: Code Status: DNR/DNI PENITENTIARY: SNF STAY <30 DAYS: Yes POST DISCHARGE ORDERS: ACTIVITY ORDERS: Activity as tolerated WEIGHT BEARING STATUS: As tolerated DIET AFTER DISCHARGE: Cardiac CHECKS AFTER DISCHARGE: CHECKS AFTER DISCHARGE: Check blood press - daily FOLLOW-UP: PHYSICIAN FOLLOW-UP: PCP within 2 weeks of discharge TREATMENT/EQUIPMENT ORDERS: Physical Therapy For: Evalulation/Treatment Occupational Therapy For: Evaluation/Treatment Speech Language Pathology For: Swallow Cognition DISCHARGE MEDICATIONS: Home Meds Active Scripts Atorvastatin Calcium (ATORVASTATIN CALCIUM) 20 Mg Tablet, 20 MG PO QHS for cholesterol for 30 Days, #30 TAB Prov:SHAYNA GARCIA MD 08/14/20 Cyclobenzaprine Hcl (CYCLOBENZAPRINE HCL) 10 Mg Tablet, 10 MG PO TID PRN PRN, #20 TAB Prov:CHARLES HOSKINS MD 03/21/13 Reported Medications Hydrochlorothiazide (HYDROCHLOROTHIAZIDE TABLET) 12.5 Mg Tablet, 25 MG PO DAILY for DIURETIC, TAB 0 Refills 08/14/20 Oxybutynin Chloride (OXYBUTYNIN CHLORIDE ER) 10 Mg Tab.er.24, 1 TAB PO DAILY for retention, #30 TAB 5 Refills 08/14/20 Amlodipine Besylate (AMLODIPINE BESYLATE) 5 Mg Tablet, 5 MG PO DAILY for HTN, TAB 08/14/20 Lidocaine (Lidocaine PATCH ) 1 Each Adh..patch, 1 EACH TP DAILY for FOR LOCAL PAIN, PATCH REMOVE AFTER 12 HOURS 08/14/20 Melatonin (MELATONIN) 5 Mg Tab.rapdis, 1 TAB PO QHS for sleep for 30 Days, #30 TAB 0 Refills 08/14/20 Carvedilol (CARVEDILOL ) 3.125 Mg Tablet, 3.125 MG PO BIDWMEALS for CARDIAC, TAB 08/14/20 Cholecalciferol (Vitamin D3) (VITAMIN D) 2,000 Unit Tablet, 2000 UNIT PO DAILY 03/21/13 Aspirin (ASPIR 81) 81 Mg Tablet.dr, 81 MG PO DAILY 03/21/13 Discontinued Scripts Hydrocodone/Apap 5-325 (NORCO 5-325 TABLET) 1 Each Tablet, 1 EACH PO Q6HRS PRN, #18 TAB Prov:CHARLES HOSKINS MD 03/21/13 SHAYNA GARCIA MD August 14, 2020 12:11
[2020-08-14 12:26] LABS: HEMATOCRIT 26.9 % (36.0-47.0); HEMOGLOBIN 8.4 g/dL (12.0-15.5); RED BLOOD COUNT 3.78 x10^6/uL (3.50-5.40); RED CELL DISTRIBUTION WIDTH 18.3 % (11.5-14.5); WHITE BLOOD COUNT 10.4 x10^3/uL (4.0-11.0)
[2020-08-14] MEDS ORDERED: amLODIPine BESYLATE 5 MG TABLET PO SCH (12:30)
[2020-08-14] MEDS ORDERED: OXYBUTYNIN CHLORIDE 5 MG TABLET PO SCH (12:30)
[2020-08-14] MEDS ORDERED: LIDOCAINE (700MG/PATCH) PATCH. TP SCH (12:30)
[2020-08-14] MEDS ORDERED: CHOLECALCIFEROL (VITAMIN D3) 1,000 UNIT TABLET PO SCH (12:30)
[2020-08-14 12:37] LABS: ALBUMIN 2.5 g/dL (3.4-5.0); ALBUMIN/GLOBULIN RATIO 0.7 (1.0-1.7); CALCIUM 8.4 mg/dL (8.5-10.1); POTASSIUM 3.3 mmol/L (3.5-5.1); TOTAL BILIRUBIN 1.2 mg/dL (0.2-1.0)
[2020-08-14] MEDS ORDERED: POTASSIUM CHLORIDE 20 MEQ TABLET.ER. PO ONE (13:30)
--- NOTE | 2020-08-14 15:40 | NUR ---
SS following up with discharge planning. SS reviewed pt chart and discussed with pt RN. Pt is currently requiring oxygen at two liters nasal canula. COVID19 negative. PT/OT [facility]. Discharge orders received. SS phoned and faxed referral and discharge orders to [facility], ; fax [phone]. Pt accepted. Pt will discharge today and go to [facility] at 1630 via stretcher. [facility] to provide transportation. Pt, pt's RN, and pt's DPOA notified.
--- NOTE | 2020-08-14 16:30 | NUR ---
Discharge Note: [facility] Discharge instructions and discharge home medications reviewed with Other facility and a copy given. All questions have been answered and understanding verbalized. The following instructions and handouts were given: Plan of Care and med rec. Discontinued lines and drains: dressings clean dry and intact. Patient discharged to [facility] with SNU via EMS
[2020-08-14] MEDS ORDERED: PATCH REMOVAL. MC SCH (21:00)
[2020-08-14] MEDS ORDERED: NON FORMULARY ITEM (Melatonin 1 TAB) PO SCH (21:00)
[2020-08-15] MEDS ORDERED: hydroCHLOROthiazide 25 MG TABLET PO SCH (09:00)
--- NOTE | 2020-08-16 17:19 | PDOC3 ---
[facility]-Discharge Summary Date of Admission: Date of Admission: August 11, 2020 Date of Discharge: Date of Discharge: August 14, 2020 Discharge Diagnosis: Discharge Diagnosis: fall, found down rhabdomyolysis right arm injury, contusion or radial head fracture. dementia weakness, debility htn, chronic diastolic CHF, careful with fluids, microcytic anemia, check iron Hospital Course: Hospital Course: 85 year old admit from ER after being found down at her place. She may have been down up to 23 hours from when she was last seen. She has family check on her almost daily and I would guess gets home health. she complains of right arm pain and there is some redness of her upper arm. She is confused but conversant. 08/13/2020 No acute events overnight. Patient is tolerating p.o. and is encouraged for p.o. free water intake. CK level is at 967 today. Continues to have adequate urine output. Patient's chart, labs, images were reviewed and discussed with RN Total time spent was 35 minutes in preparing scripts, discharge planning with SW and RN, and preparing this discharge summary. Patient seen and examined on day of discharge. Disposition: Disposition/Orders: D/C to Home Activity: Activity: Resume previous activity Diet: Diet: Cardiac Medications: Home Meds Active Scripts Atorvastatin Calcium (ATORVASTATIN CALCIUM) 20 Mg Tablet, 20 MG PO QHS for cholesterol for 30 Days, #30 TAB Prov:SHAYNA GARCIA MD 08/14/20 Cyclobenzaprine Hcl (CYCLOBENZAPRINE HCL) 10 Mg Tablet, 10 MG PO TID PRN PRN, #20 TAB Prov:CHARLES HOSKINS MD 03/21/13 Reported Medications Hydrochlorothiazide (HYDROCHLOROTHIAZIDE TABLET) 12.5 Mg Tablet, 25 MG PO DAILY for DIURETIC, TAB 0 Refills 08/14/20 Oxybutynin Chloride (OXYBUTYNIN CHLORIDE ER) 10 Mg Tab.er.24, 1 TAB PO DAILY for retention, #30 TAB 5 Refills 08/14/20 Amlodipine Besylate (AMLODIPINE BESYLATE) 5 Mg Tablet, 5 MG PO DAILY for HTN, TAB 08/14/20 Lidocaine (Lidocaine PATCH ) 1 Each Adh..patch, 1 EACH TP DAILY for FOR LOCAL PAIN, PATCH REMOVE AFTER 12 HOURS 08/14/20 Melatonin (MELATONIN) 5 Mg Tab.rapdis, 1 TAB PO QHS for sleep for 30 Days, #30 TAB 0 Refills 08/14/20 Carvedilol (CARVEDILOL ) 3.125 Mg Tablet, 3.125 MG PO BIDWMEALS for CARDIAC, TAB 08/14/20 Cholecalciferol (Vitamin D3) (VITAMIN D) 2,000 Unit Tablet, 2000 UNIT PO DAILY 03/21/13 Aspirin (ASPIR 81) 81 Mg Tablet.dr, 81 MG PO DAILY 03/21/13 Discontinued Scripts Hydrocodone/Apap 5-325 (NORCO 5-325 TABLET) 1 Each Tablet, 1 EACH PO Q6HRS PRN, #18 TAB Prov:CHARLES HOSKINS MD 03/21/13 Scheduled Amlodipine Besylate (Amlodipine Besylate), 5 MG PO DAILY, (Reported) Aspirin (Aspir 81), 81 MG PO DAILY, (Reported) Atorvastatin Calcium (Atorvastatin Calcium), 20 MG PO QHS Carvedilol (Carvedilol ), 3.125 MG PO BIDWMEALS, (Reported) Cholecalciferol (Vitamin D3) (Vitamin D), 2,000 UNIT PO DAILY, (Reported) Hydrochlorothiazide (Hydrochlorothiazide Tablet), 25 MG PO DAILY, (Reported) Lidocaine (Lidocaine PATCH ), 1 EACH TP DAILY, (Reported) Melatonin (Melatonin), 1 TAB PO QHS, (Reported) Oxybutynin Chloride (Oxybutynin Chloride Er), 1 TAB PO DAILY, (Reported) Scheduled PRN Cyclobenzaprine Hcl (Cyclobenzaprine Hcl), 10 MG PO TID PRN PRN Discontinued Medications Hydrocodone/Apap 5-325 ([place] 5-325 Tablet), 1 EACH PO Q6HRS PRN Total Time: Total Time: Total time spent was 35 minutes in preparing scripts, discharge planning with SW and RN, and preparing this discharge summary. Patient seen and examined on day of discharge. Justicifation of Admission Dx: Justifications for Admission: Justification of Admission Dx: Yes CHF: Sev. Electrolyte Abnormal SHAYNA GARCIA MD August 16, 2020 17:19
== END 2020-08-14 18:03 | DRG 604 ==
LOC: ER 16:52 → 1 WEST ICU 20:21
PROVIDERS: ADMIT Internal Medicine; ATTEND Internal Medicine
DX: S50.01XA Contusion of right elbow, initial encounter (principal); G92 Toxic encephalopathy; N30.00 Acute cystitis without hematuria; M62.82 Rhabdomyolysis; I50.32 Chronic diastolic (congestive) heart failure; D50.9 Iron deficiency anemia, unspecified; Z96.643 Presence of artificial hip joint, bilateral; Z96.659 Presence of unspecified artificial knee joint; Z96.611 Presence of right artificial shoulder joint; F03.90 Unspecified dementia, unspecified severity, without behavioral disturbance, psychotic disturbance, mood disturbance, and anxiety; I11.0 Hypertensive heart disease with heart failure; W18.39XA Other fall on same level, initial encounter; Y93.89 Activity, other specified; Z20.822 Contact with and (suspected) exposure to COVID-19; Y92.89 Other specified places as the place of occurrence of the external cause; Z90.49 Acquired absence of other specified parts of digestive tract; Z88.0 Allergy status to penicillin; Z88.8 Allergy status to other drugs, medicaments and biological substances; Y99.8 Other external cause status
CPT/HCPCS: 36415; 70450; 71045; 72125; 72128; 72131; 73030; 73080; 73521; 80053; 81001; 82550; 82962; 83540; 83550; 83605; 83690; 83735; 83880; 84484; 85007; 85025; 85027; 85610; 87040; 87077; 87086; 93005; 96360; J7030; U0003; U0005; 97530-GP; 99285-25; G0378